=== PATIENT | female | born 1940 | race Caucasian/White ===

== ENCOUNTER → 2017-02-19 | Outpatient (REF) | payer MEDICARE, OTHER ==
[2017-02-21 12:08] LABS: ALBUMIN 4.66 GM/DL (3.29-5.55); ALBUMIN % 58.2 % (55.8-66.1)
== END ==
LOC: M LAB REF 17:10
PROVIDERS: ATTEND Internal Medicine
DX: E83.52 Hypercalcemia (principal)

== ENCOUNTER → 2018-08-11 | Outpatient (CLI) | payer MEDICARE, OTHER | LOC: M WHC 15:25 | DX: Z12.31 Encounter for screening mammogram for malignant neoplasm of breast (principal); Z78.0 Asymptomatic menopausal state; Z92.0 Personal history of contraception | CPT/HCPCS: 77067 ==

== ENCOUNTER → 2018-10-08 | Outpatient (CLI) | payer MEDICARE, OTHER ==
--- NOTE | 2018-10-13 13:50 | DEXA ---
AP SPINE L1 - L4 0.960 -1.9 -0.1 LT FEMUR TOTAL 0.791 -1.7 0.1 LT NECK 0.780 -1.9 0.1 RT FEMUR TOTAL 0.840 -1.3 0.5 RT NECK 0.810 -1.6 0.3 TOTAL BODY TOTAL OTHER COMMENTS: There is low bone density of the spine and hips. The density of the spine has increased 9.7% since the initial exam on 07/22/2003. The spine density has decreased 1.3% since the most recent exam on 08/03/2016. The density of the left hip has decreased 3.3% since the initial exam on 07/22/2003. The density of the left hip has increased 0.3% since the most recent exam on 08/03/2016. The density of the right hip has decreased 1.6% since the initial exam on 07/22/2003. The density of the right hip has decreased 0.6% since the most recent exam on 08/03/2016. FOLLOW-UP: Recommendation for the next bone density exam: 2 years. DALJIT
== END ==
LOC: M WHC 09:52
PROVIDERS: ATTEND Internal Medicine
DX: M85.89 Other specified disorders of bone density and structure, multiple sites (principal)

== ENCOUNTER → 2019-01-07 | Outpatient (REF) | payer MEDICARE, OTHER ==
[2019-01-07 12:40] LABS: AMYLASE 75 U/L (25-115); LIPASE 354 U/L (73-393)
== END ==
LOC: M LAB REF 11:58
PROVIDERS: ATTEND Nurse Practitioner Family
DX: R10.11 Right upper quadrant pain (principal)

== ENCOUNTER → 2019-09-10 | Outpatient (CLI) | payer MEDICARE, OTHER ==
--- NOTE | 2019-09-10 09:38 | REPMRS ---
Patient History The patient states she has not had a clinical breast exam in over a year. No known family history of cancer. Took hormonal contraceptives for 2 years. 3D TOMOSYNTHESIS WAS PERFORMED. [facility] 2.[facility]%. Digital Mammo Screening Bilat: September 10, 2019 - Exam #: [id number] Bilateral CC and MLO view(s) were taken. Technologist: Carolin Byrd, Technologist Prior study comparison: August 11, 2018, bilateral digital woman screen mammo, performed at [facility]. August 03, 2016, digital woman screen mammo, performed at [facility]. FINDINGS: The breast tissue is heterogeneously dense. This may lower the sensitivity of mammography. There has been no change in the appearance of the mammogram from the prior studies. There is a moderate amount of residual fibroglandular tissue which is fairly symmetric. There is no interval development of dominant mass, areas of architectural distortion, or clustered microcalcification typical of malignancy. Assessment: BI-RADS/ACR category 1 mammogram. Negative Mammogram. Recommendation Routine screening mammogram in 1 year (for women over age 40). This mammogram was interpreted with the aid of an FDA-approved computer-aided dectection system. Electronically Signed By: Yao Stewart MD 09/10/19 0937
== END ==
LOC: M RAD 08:38
PROVIDERS: ATTEND Internal Medicine
DX: Z12.31 Encounter for screening mammogram for malignant neoplasm of breast (principal)

== ENCOUNTER → 2020-11-03 | Outpatient (CLI) | payer SELFPAY | LOC: M LABSMTC 09:55 | PROVIDERS: ATTEND Pediatrics | DX: Z20.822 Contact with and (suspected) exposure to COVID-19 (principal) ==

== ENCOUNTER → 2020-11-24 | Outpatient (CLI) | payer MEDICARE, OTHER ==
--- NOTE | 2020-11-24 11:59 | REPMRS ---
Patient History The patient states she has not had a clinical breast exam in over a year. No known family history of cancer. Took hormonal contraceptives for 2 years. Digital Woman Screen Mammo: November 24, 2020 - Exam #: [id number] Bilateral CC and MLO view(s) were taken. Technologist: Lani Martins, Technologist Prior study comparison: September 10, 2019, bilateral digital mammo screening bilat, performed at [facility]. August 11, 2018, bilateral digital woman screen mammo performed at [facility]. August 03, 2016, digital woman screen mammo performed at [facility]. FINDINGS: There are scattered fibroglandular densities. The Volpara volumetric breast density category is:B. There has been no change in the appearance of the mammogram from the prior studies. There is a mild amount of scattered fibroglandular density which is fairly symmetric. There is no interval development of dominant mass, architectural distortion, or grouped microcalcification suggestive of malignancy. 3-D tomosynthesis shows no additional findings. Assessment: BI-RADS/ACR category 1 mammogram. Negative Mammogram. Recommendation Routine screening mammogram of both breasts in 1 year (for women over age 40). This patient's [facility] Lifetime Breast Cancer Risk is estimated at 2.0 %. This mammogram was interpreted with the aid of an FDA-approved computer-aided dectection system. Electronically Signed By: Kenneth Lockhart MD 11/24/20 [id number]
== END ==
LOC: M WHC 10:01
PROVIDERS: ATTEND Internal Medicine
DX: Z12.31 Encounter for screening mammogram for malignant neoplasm of breast (principal)

== ENCOUNTER 2021-11-03 09:10 | Emergency (ER) | payer MEDICARE, OTHER ==
[~2021-11-03] VITALS: Ht 160 cm; Wt 83.5 kg
[2021-11-03] MEDS ORDERED: JANU100T PO (09:19)
[2021-11-03] MEDS ORDERED: FLUV80TA PO (09:19)
[2021-11-03] MEDS ORDERED: ASPI81CH33 PO (09:19)
[2021-11-03] MEDS ORDERED: GLIM2TAB4 PO (09:19)
[2021-11-03] MEDS ORDERED: METF750T36 PO (09:19)
[2021-11-03] MEDS ORDERED: ACETAMINOPHEN 325 MG TAB PO ONE (09:45)
[2021-11-03] MEDS ORDERED: LIDOCAINE 5% (LIDODERM) PATCH TD ONE (11:10)
[2021-11-03] MEDS ORDERED: IBUPROFEN 600MG TAB PO ONE (11:10)
[2021-11-03 12:19] VITALS: BP 148/78
[2021-11-03] MEDS ORDERED: LIDO5DIS41 TOP (12:21)
[2021-11-03] MEDS ORDERED: METH-1164 PO (12:22)
[2021-11-03] MEDS ORDERED: **NOTE PATIENT COMMENT** MISC XX ONE (23:00)
== END 2021-11-03 12:29 | disposition home or self-care (01) ==
LOC: M ED 09:10
DX: M54.9 Dorsalgia, unspecified (principal); W01.0XXA Fall on same level from slipping, tripping and stumbling without subsequent striking against object, initial encounter; Y92.9 Unspecified place or not applicable; Y93.K9 Activity, other involving animal care; Y99.9 Unspecified external cause status

== ENCOUNTER → 2022-02-08 | Outpatient (CLI) | payer MEDICARE, OTHER ==
[~2022-02-08] MED LIST: ASPI81CH33 PO; FLUV80TA PO; GLIM2TAB4 PO; JANU100T PO; LIDO5DIS41 TOP; METF750T36 PO; METH-1164 PO
== END ==
LOC: M WHC 10:47
PROVIDERS: ATTEND Internal Medicine
DX: Z12.31 Encounter for screening mammogram for malignant neoplasm of breast (principal)

== ENCOUNTER 2023-11-05 10:06 | Emergency (ER) | payer MEDICARE, OTHER ==
[~2023-11-05] VITALS: Ht 160 cm; Wt 68.6 kg
[2023-11-05 10:18] VITALS: TEMP 99
[2023-11-05] MEDS: METOPROLOL 5 MG/5 ML VIAL IV SCH (10:30)
[2023-11-05 10:39] LABS: BASO # 0.1 10^3/uL (0.0-0.2); BASO % 0.6 % (0.0-1.0); EOS # 0.1 10^3/uL (0.0-0.5); EOS % 0.9 % (0.0-3.0); HEMATOCRIT 42.6 % (36.0-47.0); HEMOGLOBIN 13.9 g/dl (12.0-15.5); LYMPH % 10.2 % (24.0-44.0); MEAN CORPUSCULAR HEMOGLOBIN 32.8 pg (27.0-33.0); MEAN CORPUSCULAR HGB CONC 32.6 g/dl (32.0-36.5); MEAN CORPUSCULAR VOLUME 100.5 fl (80.0-96.0); MONO # 0.9 10^3/uL (0.0-0.8); MONO % 9.1 % (2.0-8.0); NEUTROPHILS % 78.9 % (36.0-66.0); PLATELET COUNT, AUTOMATED 208 10^3/uL (150-450); RED BLOOD COUNT 4.24 10^6/uL (4.00-5.40); WHITE BLOOD COUNT 10.1 10^3/uL (4.0-10.0)
[2023-11-05 10:54] LABS: INR 1.21; PROTHROMBIN TIME 14.9 SECONDS (12.5-14.5)
[2023-11-05] MEDS: ACETAMINOPHEN 500 MG TAB PO ONE (11:20)
[2023-11-05] MEDS: METOPROLOL TART 25 MG TABLET PO ONE (11:20)
[2023-11-05 11:25] LABS: ALBUMIN 3.9 G/DL (3.2-5.2); ALKALINE PHOSPHATASE 47 U/L (46-116); ALT/SGPT 14 U/L (7.0-40); AST/SGOT 15 U/L (<34); BILIRUBIN,DIRECT 0.2 MG/DL (<0.4); BILIRUBIN,TOTAL 0.7 MG/DL (0.3-1.2); BLOOD UREA NITROGEN 12 MG/DL (9-23); CALCIUM LEVEL 9.5 MG/DL (8.3-10.6); CARBON DIOXIDE LEVEL 26 MMOL/L (20-31); CHLORIDE LEVEL 105 MMOL/L (98-107); CREATININE FOR GFR 0.64 MG/DL (0.55-1.30); GLOMERULAR FILTRATION RATE > 60.0 (>32); GLUCOSE, FASTING 124 MG/DL (74-106); POTASSIUM SERUM 4.3 MMOL/L (3.5-5.1); SODIUM LEVEL 137 MMOL/L (136-145); TOTAL PROTEIN 6.9 G/DL (5.7-8.2)
[2023-11-05 11:26] LABS: THYROID STIMULATING HORMONE 2.649 uIU/ML (0.55-4.78); THYROXINE (T4) 8.4 UG/DL (4.5-10.9)
[2023-11-05 13:07] LABS: MAGNESIUM LEVEL 1.4 MG/DL (1.8-2.4)
[2023-11-05] MEDS: MAG SULF 1GM/100ML (MAG RUN) 1 GM in IV 1 EA IV ONE ×2 (13:15→14:00)
[2023-11-05] MEDS ORDERED: ELIQ5TAB PO ×2 (13:51→15:11)
[2023-11-05] MEDS ORDERED: ATEN25TA PO ×2 (13:52→15:11)
[2023-11-05] MEDS ORDERED: SLOWTAB2 PO ×2 (13:52→15:15)
[2023-11-05] MEDS ORDERED: OXYM15SP2 ×2 (13:54→15:15)
[2023-11-05] MEDS ORDERED: FLON1SPR NARES (13:54)
[2023-11-05] MEDS: APIXABAN 5 MG TAB (ELIQUIS) PO ONE (14:15)
[2023-11-05] MEDS ORDERED: ACET-907 PO (15:11)
[2023-11-05] MEDS ORDERED: FLUV80TAB PO (15:11)
[2023-11-05] MEDS ORDERED: FLUT15.820 NARES (15:15)
[2023-11-05] MEDS ORDERED: ASCO500T PO (15:28)
[2023-11-05] MEDS ORDERED: VITA200012 PO (15:28)
[2023-11-05] MEDS ORDERED: RA V400C PO (15:28)
[2023-11-05] MEDS ORDERED: PRES10CA2 PO (15:28)
[2023-11-05] MEDS ORDERED: HOME MED LIST COMPLETE! XX SCH (15:30)
[2023-11-05 16:20] VITALS: BP 106/65; O2SAT 97
== END 2023-11-05 17:05 | disposition home or self-care (01) ==
LOC: M ED 10:06 → EDBD 10:06 → M ED 17:05
DX: I48.0 Paroxysmal atrial fibrillation (principal); B97.29 Other coronavirus as the cause of diseases classified elsewhere; E11.9 Type 2 diabetes mellitus without complications; E78.5 Hyperlipidemia, unspecified; Z79.84 Long term (current) use of oral hypoglycemic drugs; Z79.82 Long term (current) use of aspirin
CPT/HCPCS: 71045; 80048; 80076; 83735; 83880; 84436; 84443; 85025; 85610; 87486; 87581; 87633; 87798; 93005; 93041; 94760; 96365; 96366; 96375; 99285; J3475

== ENCOUNTER → 2025-02-13 | Outpatient (REF) | payer MEDICARE, OTHER ==
[~2025-02-13] MED LIST changes: +ACET-907 PO; +ASCO500T PO; +ATEN25TA PO; +ELIQ5TAB PO; +FLON1SPR NARES; +FLUT15.820 NARES; +FLUV80TAB PO; +LIDO1ADH93 TOP; -LIDO5DIS41 TOP; +OXYM15SP2; +PRES10CA2 PO; +SLOWTAB2 PO; +VITA200012 PO; +VITA268C PO
== END ==
LOC: M WUC 17:23
PROVIDERS: ATTEND Physician Assistant
DX: J06.9 Acute upper respiratory infection, unspecified (principal)